=== PATIENT | male | born 1955 | race American Indian/Alaskan Native ===

== ENCOUNTER 2021-05-03 12:35 | Emergency (ER) | payer SELFPAY ==
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
[2021-05-03] MEDS ORDERED: SODIUM CHLORIDE 0.9% 1000 ML 1,000 ML IV ONE (13:15)
[2021-05-03] MEDS ORDERED: ONDANSETRON 4 MG/2 ML INJ IV ONE (14:00)
[2021-05-03] MEDS ORDERED: MORPHINE 4 MG/1 ML INJ IV ONE ×2 (14:00→18:22)
[2021-05-03 14:17] LABS: Hematocrit 22.4 % (35.5-45.6); Hemoglobin 6.7 gm/dl (11.8-15.2); Mean Corpuscular HGB Conc 30 % (32-34); Mean Corpuscular Volume 83 fl (84-94); Platelet Count 363 K/mm3 (140-440); Red Blood Count 2.71 M/mm3 (3.65-5.03); Red Cell Distribution Width 20.6 % (13.2-15.2)
[2021-05-03 14:31] LABS: Albumin 2.9 g/dL (3.9-5); Blood Urea Nitrogen 14 mg/dL (9-20); Calcium 8.9 mg/dL (8.4-10.2); Hemolysis Index 0
[2021-05-03 14:35] LABS: Alanine Aminotransferase < 5 units/L (7-56); BUN/Creatinine Ratio 23
[2021-05-03 15:19] LABS: Bilirubin,Urine NEG (Negative); Blood,Urine NEG (Negative); Color,Urine Amber (Yellow); Mucus,Urine 1+ /HPF
[2021-05-03 16:59] LABS: Anisocytosis 1+; Band Neutrophils # (Manual) 0.1 K/mm3; Hypochromasia 1+; Myelocytes # (Manual) 0.1 K/mm3; Platelet Estimate Consistent w Auto; Total Cells Counted 100
[2021-05-03] MEDS ORDERED: MORPHINE 2 MG/1 ML INJ ONE (18:53)
--- NOTE | 2021-05-03 20:12 | XRay Report ---
BILATERAL HIPS WITH PELVIS 3 VIEWS INDICATION: Fall, pain. COMPARISON: None. IMPRESSION: The bony structures appear mottled and slightly sclerotic. This could represent metastat ic osseous disease or renal osteodystrophy. No acute fracture or malalignment is identified. Mild deg enerative changes are noted at both hips. There are multiple small and large calcifications in the mi dline pelvis which may represent bladder stones. Signer Name: Sandor Murray Jr, MD Signed: 05/03/2021 8:08 PM Workstation Name: [id number]
[2021-05-04] MEDS ORDERED: MORPHINE 30 MG ER TAB PO PRN (01:20)
[2021-05-04] MEDS: PREGABALIN 75 MG CAP PO SCH ×2 (02:41→09:38)
[2021-05-04 07:47] VITALS: BP 94/52
== END 2021-05-04 12:48 | disposition home or self-care (01) ==
LOC: ED 12:35
DX: C61 Malignant neoplasm of prostate (principal); C79.51 Secondary malignant neoplasm of bone
CPT/HCPCS: 36415; 73521; 80053; 81001; 85007; 85025; 96361; 96374; 96375; 96376; 99284; J2270; J2405; J7030; Q0162